=== PATIENT | male | born 1975 | race Caucasian/White ===

== ENCOUNTER 2018-05-02 06:39 | Emergency (ER) | payer OTHER ==
[~2018-05-02] VITALS: Ht 177.8 cm; Wt 114.0 kg
[2018-05-02] MEDS ORDERED: KETOROLAC 30MG/ML VIAL IM ONE (07:15)
[2018-05-02 09:01] VITALS: BP 108/66
== END 2018-05-02 09:02 | disposition home or self-care (01) ==
LOC: ER 08:52
DX: M54.41 Lumbago with sciatica, right side (principal)
CPT/HCPCS: 96372; 99283; J1885